=== PATIENT | female | born 1960 | race Asian ===

== ENCOUNTER 2016-07-09 17:54 | Outpatient (CLI) | payer OTHER | END 2016-07-09 17:55 | disposition home or self-care (01) | DX: N28.1 Cyst of kidney, acquired (principal); K76.89 Other specified diseases of liver; K57.30 Diverticulosis of large intestine without perforation or abscess without bleeding; I51.7 Cardiomegaly ==

== ENCOUNTER 2017-05-08 14:38 | Outpatient (CLI) | payer BC, OTHER | END 2017-05-08 14:39 | disposition home or self-care (01) | LOC: SC 14:38 | PROVIDERS: ATTEND Nurse Practitioner Family | DX: G47.33 Obstructive sleep apnea (adult) (pediatric) (principal) | CPT/HCPCS: 99212; 99214 ==

== ENCOUNTER 2017-07-24 14:43 | Outpatient (CLI) | payer BC, OTHER ==
--- NOTE | 2017-07-25 09:49 | Ultrasound Report ---
THYROID ULTRASOUND: 07/24/2017 CLINICAL INDICATION: Goiter. TECHNIQUE: Real-time scanning was performed with abrasives sales representative static images obtained. FINDINGS: The thyroid is enlarged, with the right lobe measuring 10.6 x 4.7 x 4.3 cm, and the left lobe measuring 10.5 x 5.1 x 4.0 cm. The isthmus measures 12 mm. There is diffuse heterogeneity of echotexture. There are multiple isoechoic and spongiform nodules identified, with the largest, in the lower pole of the right lobe measuring 2.0 x 1.3 x 1.1 cm. The nodules appear low to very low suspicion by JOSE MANUEL criteria. No dominant suspicious nodule is appreciated. Fine needle aspiration is not recommended. IMPRESSION: MULTINODULAR GOITER WITHOUT DOMINANT SUSPICIOUS NODULE. TD: 07/25/2017 09:15 HORTENCIA
== END 2017-07-24 14:44 | disposition home or self-care (01) ==
LOC: DI 14:43
PROVIDERS: ATTEND Family Medicine
DX: E04.2 Nontoxic multinodular goiter (principal); I10 Essential (primary) hypertension
CPT/HCPCS: 76536

== ENCOUNTER 2017-08-27 10:55 | Outpatient (CLI) | payer BC, OTHER ==
--- NOTE | 2017-08-29 13:34 | Mammography Report ---
Procedure Date: 08/27/2017 Accession Number: [id number] / [id number] Procedure: MGN - Screening Mammo Dig Bilat CPT Code: FULL RESULT: EXAM: Screening Mammo Dig Bilat DATE: 08/27/2017 11:25 AM CLINICAL HISTORY: 57-year-old with history of late childbearing for screening TECHNIQUE: Bilateral CC, laterally exaggerated CC, MLO views were obtained. COMPARISON: 01/11/2016, 03/22/2014, 09/12/2012, 08/01/2011, 03/27/2010 FINDINGS: The breasts demonstrate scattered fibroglandular densities bilaterally. No suspicious masses, clustered microcalcifications, or regions of architectural distortion are identified. IMPRESSION: Negative examination RECOMMENDATION: Routine annual screening unless otherwise clinically indicated. BIRADS CATEGORY 1: Negative STANDARD QUALIFYING STATEMENTS: 1. This examination was reviewed with the aid of Computer-Aided Detection (CAD). 2. A negative or benign imaging report should not delay biopsy if clinically suspicious findings are present. Consider surgical consultation if warrented. More than 5% of cancers are not identified by imaging. 3. Dense breasts may obscure an underlying neoplasm.
== END 2017-08-27 10:56 | disposition home or self-care (01) ==
LOC: DI.N 10:55
PROVIDERS: ATTEND Family Medicine
DX: Z12.31 Encounter for screening mammogram for malignant neoplasm of breast (principal)
CPT/HCPCS: 77067

== ENCOUNTER → 2017-10-14 | Outpatient (CLI) | payer BC, OTHER ==
[2017-10-14 19:04] LABS: BASOPHILS # (AUTO) 0.1 10^3/uL (0.0-0.1); BASOPHILS % (AUTO) 0.9 %; EOSINOPHILS # (AUTO) 0.1 10^3/uL (0.0-0.7); EOSINOPHILS % (AUTO) 2.4 %; HGB - HEMOGLOBIN 13.9 g/dL (12.0-16.0); LYMPHOCYTES # (AUTO) 2.2 10^3/uL (1.5-3.5); LYMPHOCYTES % (AUTO) 37.2 %; MEAN CORPUSCULAR HEMOGLOBIN 30.3 pg (27.0-31.0); MEAN CORPUSCULAR HGB CONC 33.7 g/dL (32.0-36.0); MEAN PLATELET VOLUME 7.3 fL (7.9-10.8); MONOCYTES # (AUTO) 0.3 10^3/uL (0.0-1.0); NEUTROPHILS # (AUTO) 3.3 10^3/uL (1.5-6.6); NEUTROPHILS % (AUTO) 54.5 %; PLT - PLATELET COUNT 387 10^3/uL (130-450); RED BLOOD COUNT 4.58 10^6/uL (4.20-5.40); RED CELL DISTRIBUTION WIDTH 14.9 % (12.0-15.0)
[2017-10-14 19:34] LABS: ALBUMIN 4.4 g/dL (3.2-5.5); ALBUMIN/GLOBULIN RATIO 1.4 (1.0-2.2); BILIRUBIN,TOTAL 0.7 mg/dL (0.2-1.0); CALCIUM 9.2 mg/dL (8.5-10.3); CREATININE 0.7 mg/dL (0.4-1.0); TOTAL PROTEIN 7.6 g/dL (6.7-8.2)
[2017-10-14 19:42] LABS: THYROID STIMULATING HORMONE 0.42 uIU/mL (0.34-5.60)
[2017-10-14 19:43] LABS: FREE T4 (FREE THYROXINE) 0.86 ng/dL (0.58-1.64)
== END ==
LOC: LAB.WCP 08:00
PROVIDERS: ATTEND Internal Medicine Gastroenterology
DX: E04.2 Nontoxic multinodular goiter (principal); I10 Essential (primary) hypertension
CPT/HCPCS: 36415; 80053; 84439; 84443; 85025

== ENCOUNTER 2017-10-16 13:23 | Outpatient (CLI) | payer BC, OTHER | END 2017-10-16 13:24 | disposition home or self-care (01) | LOC: RT 13:23 | PROVIDERS: ATTEND Internal Medicine Gastroenterology | DX: E04.2 Nontoxic multinodular goiter (principal) | CPT/HCPCS: 93005 ==

== ENCOUNTER 2017-10-24 12:01 | Day surgery (SDC) | payer BC, OTHER ==
--- NOTE | 2017-10-24 12:41 | ANESTHESIA ---
Pre-Anesthesia VS, & Labs - Diagnosis hx of polyps - Procedure colonossopy Vital Signs: Temp Pulse Resp BP Pulse Ox 36.5 C 16 115/68 97 10/24/17 12:28 10/24/17 12:28 10/24/17 12:28 10/24/17 12:28 Height 5 ft 5 in Weight (kg) 94.8 kg - NPO >8 hours - Is Patient ?: Not Applicable - Lab Results Lab results reviewed: Yes Home Medications and Allergies Home Medications: Ambulatory Orders Medication Instructions Recorded Confirmed Amlodipine Besylate 10 mg PO DAILY 10/22/17 10/22/17 Fexofenadine HCl 180 mg PO BID 10/22/17 10/22/17 Fluticasone Propionate [24 Hour 1 inh NS DAILY 10/22/17 10/22/17 Allergy] Hydrochlorothiazide 12.5 mg PO DAILY 10/22/17 10/22/17 Losartan Potassium 100 mg PO DAILY 10/22/17 10/22/17 Metoprolol Succinate [Toprol Xl] 50 mg PO BID 10/22/17 10/22/17 Olopatadine HCl [Patanol] 5 ml OP PRN PRN 10/22/17 10/22/17 Triamcinolone 0.1% Oint [Kenalog 15 gm TOP BID PRN 10/22/17 10/22/17 0.1% Oint] hydrOXYzine HCl [Hydroxyzine HCl] 25 mg PO PRN PRN 10/22/17 10/22/17 Allergies/Adverse Reactions: Allergies Allergy/AdvReac Type Severity Reaction Status Date / Time Sulfa (Sulfonamide Allergy Unknown Verified 10/22/17 12:30 Antibiotics) Anes History & Medical History - Anesthetic History Anesthesia Complications: reports: Post-Operative Nausea/Vomiting Family history of Anesthesia Complications: Denies Family history of Malignant Hyperthermia: Denies - Medical History Cardiovascular: reports: Hypertension Pulmonary: reports: Sleep apnea, CPAP use Gastrointestinal: reports: GERD, Colon polyps, Other Urinary: reports: None Musculoskeletal: reports: Osteoarthritis Endocrine/Autoimmune: reports: Other Skin: reports: Eczema - Surgical History General: Cholecystectomy Orthopedic: Shoulder arthroplasty Exam General: Alert, Oriented x3, Cooperative, No acute distress Dental: Other (caps, inplant) Mouth Openin Fingerbreadth Neck Mobility: Normal Mallampati classification: III Thyromental Distance: 4-6 cm Respiratory: Lungs clear, Normal breath sounds, No respiratory distress, No accessory muscle use Cardiovascular: Normal S1, Normal S2 Mental/Cognitive Status: Alert/Oriented X3, Normal for patient Cognitive Status: Within normal limits Plan Anesthesia Type: MAC Consent for Procedure(s) Verified and Reviewed: Yes Code Status: Attempt Resuscitation ASA classification: 2-Mild systemic disease Is this case an emergency?: No
[2017-10-24] MEDS ORDERED: LACTATED RINGERS 1,000 ML IV ONE (12:49)
[2017-10-24] MEDS ORDERED: PROPOFOL 200 MG/20 ML VIAL IVP ONE (14:00)
[2017-10-24 15:09] VITALS: BP 115/69
== END 2017-10-24 12:02 | disposition home or self-care (01) ==
LOC: SDS 12:01
PROVIDERS: ATTEND Internal Medicine Gastroenterology
PROC: 0DBL8ZZ Excision of Transverse Colon, Via Natural or Artificial Opening Endoscopic (ICD-10-PCS; 2017-10-24)
PROC: 0DBN8ZZ Excision of Sigmoid Colon, Via Natural or Artificial Opening Endoscopic (ICD-10-PCS; 2017-10-24)
PROC: 0DBH8ZZ Excision of Cecum, Via Natural or Artificial Opening Endoscopic (ICD-10-PCS; 2017-10-24)
PROC: 3E0H8GC Introduction of Other Therapeutic Substance into Lower GI, Via Natural or Artificial Opening Endoscopic (ICD-10-PCS; 2017-10-24)
PROC: 0DBK8ZZ Excision of Ascending Colon, Via Natural or Artificial Opening Endoscopic (ICD-10-PCS; principal; 2017-10-24 13:15)
DX: D12.0 Benign neoplasm of cecum (principal); D12.2 Benign neoplasm of ascending colon; D12.3 Benign neoplasm of transverse colon; K63.5 Polyp of colon; G47.30 Sleep apnea, unspecified; E66.9 Obesity, unspecified; Z68.35 Body mass index [BMI] 35.0-35.9, adult; F17.210 Nicotine dependence, cigarettes, uncomplicated; K58.9 Irritable bowel syndrome, unspecified; K21.9 Gastro-esophageal reflux disease without esophagitis; E04.2 Nontoxic multinodular goiter; M54.30 Sciatica, unspecified side
CPT/HCPCS: 45380; 45381; 45385; J7120

== ENCOUNTER 2018-05-12 14:50 | Outpatient (CLI) | payer BC, OTHER | END 2018-05-12 14:51 | disposition home or self-care (01) | LOC: SC 14:50 | PROVIDERS: ATTEND Nurse Practitioner Family | DX: G47.33 Obstructive sleep apnea (adult) (pediatric) (principal) | CPT/HCPCS: 99212; 99214 ==

== ENCOUNTER 2018-05-29 11:01 | Day surgery (SDC) | payer BC, OTHER ==
[2018-05-29] MEDS ORDERED: LACTATED RINGERS 1,000 ML IV ONE (11:34)
--- NOTE | 2018-05-29 11:58 | ANESTHESIA ---
Pre-Anesthesia VS, & Labs - Diagnosis history of colon polyps - Procedure colonoscopy Vital Signs: Temp Pulse Resp BP Pulse Ox 37.6 C H 69 18 118/70 96 05/29/18 11:20 05/29/18 11:20 05/29/18 11:20 05/29/18 11:20 05/29/18 11:20 Height 5 ft 5 in Weight (kg) 96.8 kg - NPO >8 hours - Is Patient ?: Not Applicable Home Medications and Allergies Home Medications: Ambulatory Orders Levothyroxine Sodium 75 mcg PO DAILY 05/26/18 Amlodipine Besylate 10 mg PO DAILY 10/22/17 Fluticasone Propionate [24 Hour Allergy] 1 inh NS BID PRN 10/22/17 Hydrochlorothiazide 12.5 mg PO DAILY 10/22/17 Losartan Potassium 100 mg PO DAILY 10/22/17 Metoprolol Succinate [Toprol Xl] 50 mg PO BID 10/22/17 Olopatadine HCl [Patanol] 5 ml OP PRN PRN 10/22/17 Triamcinolone 0.1% Oint [Kenalog 0.1% Oint] 15 gm TOP BID PRN 10/22/17 Levothyroxine Sodium 75 mcg PO DAILY 05/26/18 Allergies/Adverse Reactions: Allergies Allergy/AdvReac Type Severity Reaction Status Date / Time Sulfa (Sulfonamide Allergy Edema Verified 05/26/18 09:09 Antibiotics) Anes History & Medical History - Anesthetic History Anesthesia Complications: reports: Post-Operative Nausea/Vomiting Family history of Anesthesia Complications: Denies Family history of Malignant Hyperthermia: Denies - Medical History Cardiovascular: reports: Hypertension Pulmonary: reports: Sleep apnea, CPAP use Gastrointestinal: reports: Colon polyps, Other Urinary: reports: None Musculoskeletal: reports: Osteoarthritis Endocrine/Autoimmune: reports: HyPOthyroidism Skin: reports: Eczema - Surgical History General: Cholecystectomy, Colonoscopy Orthopedic: Rotator cuff repair Exam General: Alert, Oriented x3, Cooperative, No acute distress Dental: Other (caps implants) Neck Mobility: Normal Mallampati classification: III Thyromental Distance: 4-6 cm Respiratory: Lungs clear, Normal breath sounds, No respiratory distress, No accessory muscle use Cardiovascular: Normal S1, Normal S2 Mental/Cognitive Status: Alert/Oriented X3, Normal for patient Plan Anesthesia Type: MAC Consent for Procedure(s) Verified and Reviewed: Yes Code Status: Attempt Resuscitation ASA classification: 3-Severe systemic disease Is this case an emergency?: No
[2018-05-29] MEDS ORDERED: LIDOCAINE-MPF 2% 5 ML VIAL IM ONE (13:26)
[2018-05-29] MEDS ORDERED: PROPOFOL 200 MG/20 ML VIAL IVP ONE (13:26)
[2018-05-29 13:37] VITALS: BP 101/51
== END 2018-05-29 11:02 | disposition home or self-care (01) ==
LOC: SDS 11:01
PROVIDERS: ATTEND Internal Medicine Gastroenterology
PROC: 0DBL8ZZ Excision of Transverse Colon, Via Natural or Artificial Opening Endoscopic (ICD-10-PCS; 2018-05-29)
PROC: 0DBN8ZZ Excision of Sigmoid Colon, Via Natural or Artificial Opening Endoscopic (ICD-10-PCS; 2018-05-29)
PROC: 3E0H8GC Introduction of Other Therapeutic Substance into Lower GI, Via Natural or Artificial Opening Endoscopic (ICD-10-PCS; 2018-05-29)
PROC: 0DBK8ZZ Excision of Ascending Colon, Via Natural or Artificial Opening Endoscopic (ICD-10-PCS; principal; 2018-05-29 12:15)
DX: D12.2 Benign neoplasm of ascending colon (principal); D12.3 Benign neoplasm of transverse colon; K63.5 Polyp of colon; K62.1 Rectal polyp; G47.30 Sleep apnea, unspecified; I10 Essential (primary) hypertension; K58.9 Irritable bowel syndrome, unspecified; F17.210 Nicotine dependence, cigarettes, uncomplicated; E66.9 Obesity, unspecified; Z68.36 Body mass index [BMI] 36.0-36.9, adult; Z79.899 Other long term (current) drug therapy; Z86.010 Personal history of colon polyps; Z83.71 Family history of colonic polyps
CPT/HCPCS: 45381; 45385; J7120

== ENCOUNTER 2018-06-28 08:57 | Outpatient (CLI) | payer BC, OTHER ==
--- NOTE | 2018-06-30 10:27 | Ultrasound Report ---
Reason: GOITER,MULTINODULAR Procedure Date: 06/28/2018 Accession Number: [id number] / [id number] Procedure: US - Head or Neck Soft Tissue CPT Code: FULL RESULT: EXAM: THYROID ULTRASOUND EXAM DATE: 06/28/2018 09:33 AM. CLINICAL HISTORY: Follow-up multinodular goiter. COMPARISON: HEAD OR NECK SOFT TISSUE 07/24/2017 3:26 PM. TECHNIQUE: Real time sonographic imaging of the thyroid was performed by the intermediate school teacher. Multiple veterans contact representative static images were saved for review. FINDINGS: THYROID GLAND: Right Lobe: 5.6 x 4.0 x 3.9 cm, volume 47 cc. Parenchymal background is echogenic and diffusely nodular. Right Lobe Nodules: 1.2 x 0.8 x 1.2 cm heterogeneous solid appearing nodule, 1.4 x 1.2 x 1.4 cm isoechoic heterogeneous solid-appearing nodule and partially cystic partially solid 2.2 x 2.1 x 2.0 cm inferior pole nodule. Left Lobe: 5.6 x 4.6 x 5.0 cm, volume 68 cc. Parenchymal background is echogenic and diffusely nodular. Left Lobe Nodules: 1.8 x 1.4 x 1.8 cm posterior hypoechoic solid nodule, 2.2 x 1.5 x 2.1 partially cystic partially solid heterogeneous nodule, 0.9 x 0.7 x 0.9 cm hypoechoic heterogeneous nodule. Isthmus: 1.4 cm AP. Isthmic Nodules: Heterogeneous appearance. LYMPH NODES: No adenopathy demonstrated in the central or lateral compartment. OTHER: None. IMPRESSION: Redemonstration of heterogeneous echotexture and diffuse enlargement. Redemonstration of bilateral low suspicion nodules which measure 2 cm or greater in the setting of a multinodular goiter. The questionable interval enlargement is uncertain given heterogeneous parenchymal background. JOSE MANUEL management guidelines for low suspicion nodules of this size is tissue sampling by FNA or followup. Management recommendations are based on 2015 [place] [employer] Management Guidelines for Adult Patients with Thyroid Nodules and Differentiated Thyroid Cancer. RADIA
== END 2018-06-28 08:58 | disposition home or self-care (01) ==
LOC: DI 08:57
PROVIDERS: ATTEND Family Medicine
DX: E04.2 Nontoxic multinodular goiter (principal)
CPT/HCPCS: 76536

== ENCOUNTER 2018-10-01 12:47 | Outpatient (CLI) | payer BC, OTHER ==
--- NOTE | 2018-10-02 08:32 | Mammography Report ---
Reason: SCREENING MAMMO Procedure Date: 10/01/2018 Accession Number: [id number] / [id number] Procedure: MGN - Screening Mammo Dig Bilat CPT Code: FULL RESULT: EXAM: Screening Mammo Dig Bilat DATE: 10/01/2018 2:19 PM CLINICAL HISTORY: History of late childbearing and early menses. Screening encounter. TECHNIQUE: (B) - Bilateral CC and MLO views were obtained. COMPARISON: 08/27/2017 through 09/12/2012. PARENCHYMAL PATTERN: (A) - The breast(s) demonstrate(s) scattered fibroglandular densities. FINDINGS: There are no suspicious masses, calcifications, or areas of distortion. IMPRESSION: Negative examination. BI-RADS category 1. RECOMMENDATION: (ANNUAL) - Recommend routine annual screening mammography. BI-RADS CATEGORY: (1) - Negative. STANDARD QUALIFYING STATEMENTS: 1. This examination was not reviewed with the aid of Computer-Aided Detection (CAD). 2. A negative or benign imaging report should not preclude biopsy if clinically suspicious findings are present. 3. Dense breasts may obscure an underlying neoplasm. 4. This examination was reviewed without the aid of 3D breast imaging (tomosynthesis).
== END 2018-10-01 12:48 | disposition home or self-care (01) ==
LOC: DI.N 12:47
DX: Z12.31 Encounter for screening mammogram for malignant neoplasm of breast (principal)
CPT/HCPCS: 77067

== ENCOUNTER 2019-11-05 15:17 | Outpatient (CLI) | payer OTHER ==
--- NOTE | 2019-11-06 11:09 | Mammography Report ---
BILATERAL DIGITAL SCREENING MAMMOGRAM 3D/2D: 11/05/2019 CLINICAL: Routine screening. Comparison is made to exams dated: 10/01/2018 mammogram, 08/27/2017 mammogram, and 01/11/2016 mammogram - [facility]. There are scattered fibroglandular elements in both breasts. No significant masses, calcifications, or other findings are seen in either breast. There has been no significant interval change. IMPRESSION: NEGATIVE There is no mammographic evidence of malignancy. A 1 year screening mammogram is recommended. This exam was interpreted at Station ID: [id number]. NOTE: For mammograms, a report in lay terms will be sent to the patient. Approximately 15% of breast malignancies will not be visualized mammographically. In the management of a palpable breast mass, a negative mammogram must not discourage biopsy of a clinically suspicious lesion. Electronically Signed By: Xiao hayes/[email or web address]:11/05/2019 17:35:43 ACR BI-RADS Category 1: Negative [id number] PARENCHYMAL PATTERN: (A) - The breast(s) demonstrate(s) scattered fibroglandular densities. BI-RADS CATEGORY: (1) - 1 RECOMMENDATION: (ANNUAL) - Recommend routine annual screening mammography. [id number] 1 year screening LATERALITY: (B)
== END 2019-11-05 15:18 | disposition home or self-care (01) ==
LOC: DI.N 15:17
DX: Z12.31 Encounter for screening mammogram for malignant neoplasm of breast (principal)
CPT/HCPCS: 77063; 77067

== ENCOUNTER 2019-11-06 10:22 | Day surgery (SDC) | payer OTHER ==
--- NOTE | 2019-11-06 07:57 | ANESTHESIA ---
Pre-Anesthesia VS, & Labs - Diagnosis screening, history of polyps - Procedure colonoscopy (previously required MAC) Height 5 ft 5 in Body Mass Index 38.9 - NPO >8 hours - Is Patient ?: No Home Medications and Allergies Amlodipine Besylate 10 mg PO DAILY 10/22/17 Fluticasone Propionate [24 Hour Allergy] 1 inh NS BID PRN 10/22/17 Hydrochlorothiazide 12.5 mg PO DAILY 10/22/17 Losartan Potassium 100 mg PO DAILY 10/22/17 Metoprolol Succinate [Toprol Xl] 50 mg PO BID 10/22/17 Olopatadine HCl [Patanol] 5 ml OP PRN PRN 10/22/17 Triamcinolone 0.1% Oint [Kenalog 0.1% Oint] 15 gm TOP BID PRN 10/22/17 Levothyroxine Sodium 75 mcg PO DAILY 05/26/18 Allergies/Adverse Reactions: Allergies Allergy/AdvReac Type Severity Reaction Status Date / Time Sulfa (Sulfonamide Allergy Edema Verified 05/26/18 09:09 Antibiotics) Anes History & Medical History - Anesthetic History Anesthesia Complications: reports: Post-Operative Nausea/Vomiting Family history of Anesthesia Complications: Denies Family history of Malignant Hyperthermia: Denies - Medical History Cardiovascular: reports: Hypertension Pulmonary: reports: Sleep apnea, CPAP use Gastrointestinal: reports: Colon polyps, Other Urinary: reports: None Musculoskeletal: reports: Osteoarthritis Endocrine/Autoimmune: reports: HyPOthyroidism Skin: reports: Eczema - Surgical History General: Cholecystectomy, Colonoscopy Orthopedic: Rotator cuff repair Exam General: Alert, Oriented x3, Cooperative Mouth Openin Fingerbreadth Neck Mobility: Normal Mallampati classification: II Respiratory: Lungs clear, Normal breath sounds, No respiratory distress Cardiovascular: Regular rate Neurological: Normal speech Mental/Cognitive Status: Alert/Oriented X3, Normal for patient Cognitive Status: Within normal limits Plan Anesthesia Type: MAC Consent for Procedure(s) Verified and Reviewed: Yes Code Status: Attempt Resuscitation ASA classification: 3-Severe systemic disease Is this case an emergency?: No
[2019-11-06] MEDS ORDERED: LACTATED RINGERS 1,000 ML IV ONE ×2 (10:25→12:36)
[2019-11-06] MEDS ORDERED: fentaNYL 100 MCG/2 ML VIAL IVP ONE (11:11)
[2019-11-06] MEDS ORDERED: PROPOFOL 200 MG/20 ML VIAL IVP ONE (11:11)
[2019-11-06] MEDS ORDERED: MIDAZOLAM 2 MG/2 ML VIAL IVP ONE (11:11)
[2019-11-06 13:20] VITALS: BP 101/56
--- NOTE | 2019-11-06 13:27 | ANESTHESIA POST OP EVALUATION ---
Anesthesia Post Eval - Post Anesthesia Eval Vitals: Last Vital Signs Temp 36.0 C L 11/06/19 13:17 Pulse 61 11/06/19 13:17 Resp 12 11/06/19 13:17 BP 101/56 L 11/06/19 13:17 Pulse Ox 97 11/06/19 13:17 CV Function Including HR & BP: positive: Stable Pain Control: positive: Satisfactory Nausea & Vomiting: positive: Negative Mental Status: positive: Baseline Respiratory Status: Airway Patent Hydration Status: Satisfactory
== END 2019-11-06 10:23 | disposition home or self-care (01) ==
LOC: SDS 10:22
PROVIDERS: ATTEND Surgery
PROC: 0DBK8ZZ Excision of Ascending Colon, Via Natural or Artificial Opening Endoscopic (ICD-10-PCS; principal; 2019-11-06 11:30)
DX: D12.2 Benign neoplasm of ascending colon (principal); D12.4 Benign neoplasm of descending colon; D12.3 Benign neoplasm of transverse colon; K63.5 Polyp of colon; K57.30 Diverticulosis of large intestine without perforation or abscess without bleeding; K58.9 Irritable bowel syndrome, unspecified; G47.30 Sleep apnea, unspecified; I10 Essential (primary) hypertension; E66.9 Obesity, unspecified; E89.0 Postprocedural hypothyroidism; Z87.891 Personal history of nicotine dependence
CPT/HCPCS: 45380; 45385; J7120

== ENCOUNTER 2020-10-03 11:24 | Outpatient (CLI) | payer OTHER ==
--- NOTE | 2020-10-03 12:42 | SLEEP CARE CONSULTATION ---
Information from patient questionnaire entered by Estee Bishop. I have reviewed and concur with the information entered by Estee Bishop. This document represents the service I personally performed and the decisions made by me, Roman Mcnulty MD, [facility]. History of Present Illness Service Date and Time: 10/03/2020 1124 Previous diagnosis: Mild, Obstructive Sleep Apnea-Hypopnea Syndrome AHI: 6.4 (in 2010) Reason for follow up: annual (last seen 09/2019) Equipment type: CPAP Equipment obtained from: [employer] Mask style: Full face Prior sleep studies: Yes Year and Where: 2010 - [facility] Type of Sleep Study: Polysomnography HPI additional information: HPI: Ms. Miller returned today for follow up of nasal CPAP therapy. She was diagnosed to have mild obstructive sleep apnea-hypopnea syndrome. The patient went to [employer] in [place] for the equipment but is getting supplies from [employer] because her insurance is [employer]. She wears a ResMed AirTouch F-20 full face mask. She reports using the device nightly and all t hrough the night. The compliance report shows usage in 180 nights out of the past 180 nights, averaging 7.6 hours a night. She complained of no particular problem with the device such as soreness on the face, dry nose, epistaxis, nasal congestion or headache. She thinks that the pressure of 15 cmH2O is comfortable. On the CPAP therapy she notices improvement in her sleep quality, and that she wakes up feeling fresher in the morning and more awake/alert during the day. The Ezel Sleepiness Scale score 5. Her notices no snore at all. The average residual AHI is 1.6; and average time in large leak per day is 17 minutes. CPAP Compliance Data - Data Reviewed with Patient Average duration of nightly device use: 7 hr 34 min Compliance rate %: 99.4 (180 days) Current pressure setting (cmH2O): 15 Humidity settin Heated hose settin Average residual AHI: 1.6 Average large leak: 17 min 29 sec Subjective Initial Ezel Sleepiness Scale score: 15 (in 2010) Current Ezel Sleepiness Scale score: 5 Allergies and Home Medications Drug allergies reviewed: Yes Home medication list reviewed: Yes Review of Systems Review of systems same as previous: Yes Physical Exam Height: 5 ft 5 in Weight: 220 lb Body Mass Index: 36.6 BMI Classification: Obese Impression and Plan IMPRESSION: 1. Obstructive Sleep Apnea-Hypopnea Syndrome, mild (AHI was 6.4), with the patient doing well on nasal CPAP therapy. She has excellent compliance and significant clinical improvement. The current pressure appears effective and comfortable. Overall, she is very satisfied with treatment and plans to c ontinue with it long-term. No adjustment is necessary today. In regards to the recall on all [employer] devices, we discussed the risks and benefits of stopping versus continuing to use the device. In severe cases, it appears the benefits outweigh the risks and it is reasonable to continue until the replace part or machine becomes available. Symptoms that could be related to the recalled sound abatement foam piece are headache, nausea, chest tightness, and upper airway irritation. She should also look for debris in the air outlet, water reservoir, and hose. If found, the device should not be used. In [id number] cases, the patients should refrain from using the device. The patient should register the device on [employer]/SRC-update. She decides to not use her CPAP until it can be replaced by [employer]. PLAN: 1. Discontinue using the CPAP until it can be replaced. 2. Try to lose weight 3. Return for follow up after she gets a new device. Counseling Topics: Weight control Visit Type: In Office Time Spent with Patient (minutes): 15 Provider Statement: I spent 100% of the Face to Face Visit with the patient with greater than 50% spent counseling the patient and coordination of care.
== END 2020-10-03 11:25 | disposition home or self-care (01) ==
LOC: SC 11:24
PROVIDERS: ATTEND Internal Medicine Pulmonary Disease
DX: G47.33 Obstructive sleep apnea (adult) (pediatric) (principal); E66.9 Obesity, unspecified; Z68.36 Body mass index [BMI] 36.0-36.9, adult
CPT/HCPCS: 99212

== ENCOUNTER 2021-01-06 10:22 | Day surgery (SDC) | payer OTHER ==
[2021-01-06] MEDS ORDERED: LACTATED RINGERS 1,000 ML IV ONE (11:07)
[2021-01-06] MEDS ORDERED: PROPOFOL 500 MG/50 ML 500 MG/50 ML VIAL ONE (11:16)
--- NOTE | 2021-01-06 11:55 | ANESTHESIA ---
Pre-Anesthesia VS, & Labs - Diagnosis GERD, hx of polyps - Procedure EGD, Colonoscopy Vital Signs: Temp Pulse Resp BP Pulse Ox 36.7 C 66 18 130/71 98 01/06/21 10:46 01/06/21 10:46 01/06/21 10:46 01/06/21 10:46 01/06/21 10:46 Height: 5 ft 5 in Weight (kg): 99.3 kg Body Mass Index: 36.4 BMI Classification: Obese - NPO >8 hours - Is Patient ?: No - Lab Results Current Lab Results: Laboratory Tests 01/06/21 11:13: POC Whole Bld Glucose 110 H Home Medications and Allergies Amlodipine Besylate 10 mg PO DAILY 10/22/17 Fluticasone Propionate [24 Hour Allergy] 1 inh NS BID PRN 10/22/17 Losartan Potassium 100 mg PO DAILY 10/22/17 Metoprolol Succinate [Toprol Xl] 50 mg PO BID 10/22/17 Olopatadine HCl [Patanol] 5 ml OP PRN PRN 10/22/17 Triamcinolone 0.1% Oint [Kenalog 0.1% Oint] 15 gm TOP BID PRN 10/22/17 hydroCHLOROthiazide [Hydrochlorothiazide] 12.5 mg PO DAILY 10/22/17 Levothyroxine Sodium 75 mcg PO DAILY 05/26/18 Allergies/Adverse Reactions: Allergies Allergy/AdvReac Type Severity Reaction Status Date / Time Sulfa (Sulfonamide Allergy Edema Verified 05/26/18 09:09 Antibiotics) Anes History & Medical History - Anesthetic History Anesthesia Complications: reports: No previous complications Family history of Anesthesia Complications: Denies Family history of Malignant Hyperthermia: Denies - Medical History Cardiovascular: reports: Hypertension Pulmonary: reports: Sleep apnea, CPAP use Gastrointestinal: reports: GERD, Colon polyps, Other Urinary: reports: None Musculoskeletal: reports: Osteoarthritis Endocrine/Autoimmune: reports: HyPOthyroidism Skin: reports: Eczema - Surgical History General: reports: Cholecystectomy, Colonoscopy, Other Orthopedic: reports: Rotator cuff repair Exam General: Alert, Oriented x3, Cooperative Dental: WNL Mouth Openin Fingerbreadth Neck Mobility: Normal Mallampati classification: II Thyromental Distance: 4-6 cm Respiratory: Lungs clear Cardiovascular: Regular rate Plan Anesthesia Type: Total IV Consent for Procedure(s) Verified and Reviewed: Yes Code Status: Attempt Resuscitation ASA classification: 3-Severe systemic disease Is this case an emergency?: No
[2021-01-06] MEDS ORDERED: LIDOCAINE-MPF 2% 5 ML VIAL ONE (12:07)
[2021-01-06] MEDS ORDERED: MIDAZOLAM 2 MG/2 ML VIAL ONE (12:08)
[2021-01-06] MEDS ORDERED: fentaNYL 100 MCG/2 ML VIAL ONE (12:28)
[2021-01-06] MEDS ORDERED: PROPOFOL 200 MG/20 ML VIAL IVP ONE ×3 (12:29→13:31)
--- NOTE | 2021-01-06 12:39 | HISTORY & PHYSICAL EXAMINATION ---
Chief Complaint - Chief Complaint Chief Complaint: History colon polyps History of Present Illness - History Obtained From Records Reviewed: yes History obtained from: pt Exam Limitations: none - History of Present Illness HPI Comment/Other: History of colon polyps and progressive GERD symptoms. History - Past Medical History Cardiovascular: reports: Hypertension Respiratory: reports: Sleep apnea, CPAP use Endocrine/Autoimmune: reports: HyPOthyroidism GI: reports: GERD, Colon polyps, Other : reports: None HEENT: reports: None Psych: reports: None Musculoskeletal: reports: Osteoarthritis Derm: reports: Eczema MRSA Hx?: No - Past Surgical History General: reports: Cholecystectomy, Colonoscopy, Other Ortho: reports: Rotator cuff repair Meds/Allgy - Home Medications Home Medications: Ambulatory Orders Medication Instructions Recorded Confirmed Amlodipine Besylate 10 mg PO DAILY 10/22/17 05/29/18 Fluticasone Propionate [24 Hour 1 inh NS BID PRN 10/22/17 05/29/18 Allergy] Losartan Potassium 100 mg PO DAILY 10/22/17 01/06/21 Metoprolol Succinate [Toprol Xl] 50 mg PO BID 10/22/17 01/06/21 Olopatadine HCl [Patanol] 5 ml OP PRN PRN 10/22/17 05/29/18 Triamcinolone 0.1% Oint [Kenalog 15 gm TOP BID PRN 10/22/17 05/29/18 0.1% Oint] hydroCHLOROthiazide 12.5 mg PO DAILY 10/22/17 01/06/21 [Hydrochlorothiazide] Levothyroxine Sodium 75 mcg PO DAILY 05/26/18 01/06/21 - Allergies Allergies/Adverse Reactions: Allergies Allergy/AdvReac Type Severity Reaction Status Date / Time Sulfa (Sulfonamide Allergy Edema Verified 05/26/18 09:09 Antibiotics) Review of Systems - Other Findings Other Findings: 10 pt ros as above otherwise unremarkable Exam - Vital Signs Reviewed Vital Signs: Yes Vital Signs: Vital Signs x48h Temp Pulse Resp BP Pulse Ox 01/06/21 10:46 36.7 C 66 18 130/71 98 - Physical Exam General Appearance: positive: No acute distress, Alert Eyes Bilateral: positive: PERRL, EOMI ENT: positive: No signs of dehydration Neck: positive: No JVD Respiratory: positive: No respiratory distress, Breath sounds nml Cardiovascular: positive: Regular rate & rhythm Abdomen: positive: Non-tender, No distention Neurologic/Psychiatric: positive: Oriented x3 Conclusion/Plan - Problem List (1) History of adenomatous polyp of colon Conclusion/Plan: plan colonoscopy and EGD. parq held and consent obtained
[2021-01-06] MEDS ORDERED: GLYCOPYRROLATE 1 MG/5 ML VIAL ONE (12:49)
[2021-01-06] MEDS ORDERED: LACTATED RINGERS 350 ML IV ONE (13:45)
[2021-01-06 14:32] VITALS: BP 121/63
--- NOTE | 2021-01-06 15:07 | ANESTHESIA POST OP EVALUATION ---
Anesthesia Post Eval - Post Anesthesia Eval Vitals: Last Vital Signs Temp 36.6 C 01/06/21 14:31 Pulse 62 01/06/21 14:31 Resp 16 01/06/21 14:31 BP 121/63 01/06/21 14:31 Pulse Ox 100 01/06/21 14:31 CV Function Including HR & BP: Stable Pain Control: Satisfactory Nausea & Vomiting: Negative Mental Status: Baseline Respiratory Status: Airway Patent Hydration Status: Satisfactory Anesthesia Complications: None
== END 2021-01-06 10:23 | disposition home or self-care (01) ==
LOC: SDS 10:22
PROVIDERS: ATTEND Surgery
PROC: 0DB78ZX Excision of Stomach, Pylorus, Via Natural or Artificial Opening Endoscopic, Diagnostic (ICD-10-PCS; 2021-01-06)
PROC: 0DBM8ZZ Excision of Descending Colon, Via Natural or Artificial Opening Endoscopic (ICD-10-PCS; principal; 2021-01-06 12:00)
PROC: 0DBN8ZX Excision of Sigmoid Colon, Via Natural or Artificial Opening Endoscopic, Diagnostic (ICD-10-PCS; 2021-01-06 12:00)
DX: D12.4 Benign neoplasm of descending colon (principal); K63.5 Polyp of colon; K62.1 Rectal polyp; K57.30 Diverticulosis of large intestine without perforation or abscess without bleeding; K29.71 Gastritis, unspecified, with bleeding; E89.0 Postprocedural hypothyroidism; G47.33 Obstructive sleep apnea (adult) (pediatric); I10 Essential (primary) hypertension; K58.9 Irritable bowel syndrome, unspecified; F17.210 Nicotine dependence, cigarettes, uncomplicated; L30.9 Dermatitis, unspecified
CPT/HCPCS: 43239; 45380; 45385; J7120

== ENCOUNTER 2021-06-07 16:41 | Outpatient (CLI) | payer OTHER ==
[2021-06-07 17:22] VITALS: BP 129/73
--- NOTE | 2021-06-07 17:22 | SLEEP CARE CONSULTATION ---
Information from patient questionnaire entered by Homer Kamara MA. I have reviewed and concur with the information entered by Homer Kamara MA. This document represents the service I personally performed and the decisions made by , Yajaiar Chaudhry ARNP. History of Present Illness Service Date and Time: 06/07/2021 1641 Previous diagnosis: Mild, Obstructive Sleep Apnea-Hypopnea Syndrome AHI: 6.4 (in 2010) Reason for follow up: other (7 MONTH F/U, RX FOR NEW MACHINE, SET UP DATE 07/2018 [place], ) Equipment type: CPAP Equipment obtained from: [employer] ([employer] supplies) Mask style: Full face Backup mask available: No (will keep old mask when replaced) Prior sleep studies: Yes Year and Where: 2010 - [facility] Sleep Type of Sleep Study: Polysomnography HPI additional information: THOMAS CHANDLER was diagnosed to have mild, AHI 6.4, obstructive sleep apnea-hypopnea syndrome and returned today for CPAP therapy 7 month follow-up. Sleep Study - Results Type of Sleep Study: Polysomnography Prior sleep studies: Yes Year and Where: 2010 [facility] Sleep CPAP Compliance Data - Data Reviewed with Patient Compliance rate %: 0 (not used since 09/2020) Compliance data discussion: Patient stopped using her CPAP in September but then started using it here and there because her sleepiness was increasing. She did not bring in her memory card today. Subjective Missed days of use due to: reports: other (Recall) Patient concerns: reports: air blowing in eyes, dry mouth, nose, throat (pt encouraged to increase humidifier setting). denies: aerophagia, mask di scomfort, mask leak noise, condensation in mask/hose, nasal congestion, epistaxis, other Observed to snore while using device: No Current pressure setting perceived as: comfortable On therapy, patient: reports: sleeping better, awakening more refreshed, being more awake and alert during the day, more rested overall. denies: drowsiness while driving Initial [place] Sleepiness Scale score: 15 (in 2010) Current [place] Sleepiness Scale score: 8 (2021) Allergies and Home Medications Known drug allergies: Yes (Sulfa, Metformin,) Home medication list reviewed: Yes (no changes) Allergy and home medication list: Allergies Sulfa (Sulfonamide Antibiotics) Allergy (Verified 04/01/19 09:09) Edema puffy eyes and face bloating Metformin, adverse reaction, extreme diarrhea Review of Systems Review of systems same as previous: Yes (no changes) Physical Exam Vital signs obtained and entered by: NAPOLEON MAHMOOD Blood Pressure: 129/73 (resp 18, pulse 70, right,) Cuff size: wrist Heart Rate: 69 O2 Saturation: 97 Height: 5 ft 5 in Weight: 212 lb Body Mass Index: 35.2 BMI Classification: Obese Impression and Plan 1. Obstructive Sleep Apnea-Hypopnea Syndrome, mild. On CPAP therapy, the patient has better sleep quality and is more rested overall. She stopped using her Dreamstation because of the recall in September 2020. She states she started having more daytime sleepiness and tiredness so she has used the CPAP some more over the last couple months. She has talked to her insurance company who told her she is eligible for a new device. She last updated in December of 2015. The patients CPAP is over 5 years old and of reasonable use. Thus, the CPAP will be updated. The new CPAPs also have a better humidity system which could assist control of patients dryness symptoms. A DWO prescription will be made. Compliance guidelines for new device and follow up discussed. Patient's apnea severity and rationale for treatment to reduce apnea, improve sleep quality and reduce cardiovascular and cerebrovascular events was reviewed. I also reviewed the benefit of consistent device use of CPAP for hypertension. 2. Obesity, unspecified. Patient's current BMI is 35.2. Patient was encouraged to try to lose weight. * Continue auto CPAP pressure at 15.0 cmH2O * Update machine * Notify me if snoring with mask or feeling that the pressure is too much or too little * Attempt to lose weight * Call this office if any problems using CPAP * Return for follow up one month after obtaining new device, or sooner if concerns arise Counseling Topics: Spare mask, Weight loss health impact Visit Type: In Office Time Spent with Patient (minutes): 25 Provider Statement: I spent 100% of the Face to Face Visit with the patient with greater than 50% spent counseling the patient and coordination of care.
== END 2021-06-07 16:42 | disposition home or self-care (01) ==
LOC: SC 16:41
PROVIDERS: ATTEND Nurse Practitioner Family
DX: G47.33 Obstructive sleep apnea (adult) (pediatric) (principal); E66.9 Obesity, unspecified; Z68.35 Body mass index [BMI] 35.0-35.9, adult
CPT/HCPCS: 99212; 99213

== ENCOUNTER 2021-08-04 08:32 | Outpatient (CLI) | payer OTHER ==
[2021-08-04 09:14] VITALS: BP 124/77
--- NOTE | 2021-08-04 09:14 | SLEEP CARE CONSULTATION ---
Information from patient questionnaire entered by Homer Pearson MA. I have reviewed and concur with the information entered by Homer Pearson MA. This document represents the service I personally performed and the decisions made by , Yajaira Chaudhry ARNP. History of Present Illness Service Date and Time: 08/04/2021 0832 Previous diagnosis: Mild, Obstructive Sleep Apnea-Hypopnea Syndrome AHI: 6.4 (in 2010) Reason for follow up: first compliance (RESMED, SANTOYO 06/14/2021, ), first compliance after device update Equipment type: CPAP Equipment obtained from: [employer] (getting supplies as needed) Mask style: Full face Mask brand: [employer]med (AirFit F20, medium) Backup mask available: Yes (old mask) Last cushion change: 1 month Prior sleep studies: Yes Year and Where: 2010 - [facility] Sleep Type of Sleep Study: Polysomnography HPI additional information: THOMAS CHANDLER was diagnosed to have mild, AHI 6.4, obstructive sleep apnea-hypopnea syndrome and returned today for CPAP therapy first compliance after updating device follow-up. Sleep Study - Results Type of Sleep Study: Polysomnography Prior sleep studies: Yes Year and Where: 2010 - [facility] Sleep CPAP Compliance Data - Data Reviewed with Patient Average duration of nightly device use: 7 HOURS 30 MINUTES Compliance rate %: 100 (07/04/2021-08/02/2021, usage) Current pressure setting (cmH2O): 15 Average residual AHI: 0.8 Central apnea: 0.0 Obstructive apnea: 0.1 Hypopnea: 0.5 Average large leak: 39.0 Subjective Missed days of use due to: reports: family emergency, illness Patient concerns: reports: dry mouth, nose, throat (dry mouth and nose), other (rash on face from mask). denies: aerophagia, mask discomfort, air blowing in eyes, mask leak noise, condensation in mask/hose, nasal congestion, epistaxis Observed to snore while using device: No Current pressure setting perceived as: too low (when ramping) On therapy, patient: reports: sleeping better, awakening more refreshed, being more awake and alert during the day, more rested overall. denies: drowsiness while driving Initial [place] Sleepiness Scale score: 15 (in 2010) Current [place] Sleepiness Scale score: 12 (07/2021) Allergies and Home Medications Known drug allergies: Yes (SULFA, METFORMIN) Drug allergies reviewed: Yes Home medication list reviewed: Yes (Prilosec) Allergy and home medication list: Allergies Sulfa (Sulfonamide Antibiotics) Allergy (Verified 05/26/18 09:09) Edema puffy eyes and face bloating metformin Adverse Reaction (Verified 06/07/21 17:05) Review of Systems Review of systems same as previous: Yes (no changes) Physical Exam Vital signs obtained and entered by: Scarlett PEARSON CMA AAMT Blood Pressure: 124/77 (RESP 16, PULSE 70, RIGHT,) Heart Rate: 68 O2 Saturation: 96 (N94) Height: 5 ft 5 in Weight: 211 lb Body Mass Index: 35.1 BMI Classification: Obese Impression and Plan 1. Obstructive Sleep Apnea-Hypopnea Syndrome, mild, with excellent treatment compliance and excellent apnea control. On CPAP therapy, the patient has better sleep quality and is more rested overall. Patient has been getting some mouth and nose dryness with new device. Oral dryness can be reduced by adjusting humidity setting higher or heated hose lower or by adjusting both settings. Verbal instructions given on how to change humidity and heated hose settings with rationale explaining why to change. Patient also got the wrong mask, she got the AirFit F20 instead of the AirTouch F20 with the memory foam. She has a light rash from wearing the AirFit. I advised her to talk to Dayna about getting her an AirTouch mask like she has had before and did not have problems with rashes. She voiced understanding. Patient's apnea severity and rationale for treatment to reduce apnea, improve sleep quality and reduce cardiovascular and cerebrovascular events was reviewed. I also reviewed the benefit of consistent device use of CPAP for hypertension. * Continue CPAP pressure at 15 cmH2O * Notify me if snoring with mask or feeling that the pressure is too much or too little * Attempt to lose weight * Call this office if any problems using CPAP * Return for follow up in 1 year, or sooner if concerns arise Counseling Topics: Spare mask, Weight loss health impact Visit Type: In Office Time Spent with Patient (minutes): 29 Provider Statement: I spent 100% of the Face to Face Visit with the patient with greater than 50% spent counseling the patient and coordination of care.
== END 2021-08-04 08:33 | disposition home or self-care (01) ==
LOC: SC 08:32
PROVIDERS: ATTEND Nurse Practitioner Family
DX: G47.33 Obstructive sleep apnea (adult) (pediatric) (principal); E66.9 Obesity, unspecified; Z68.35 Body mass index [BMI] 35.0-35.9, adult
CPT/HCPCS: 99212; 99213

== ENCOUNTER 2021-11-27 15:32 | Outpatient (CLI) | payer OTHER ==
--- NOTE | 2021-11-29 10:13 | Mammography Report ---
BILATERAL DIGITAL SCREENING MAMMOGRAM 3D/2D: 11/27/2021 CLINICAL: Routine screening. Comparison is made to exams dated: 11/05/2019 mammogram, 10/01/2018 mammogram, 08/27/2017 mammogram, 12/26 mammogram, 03/22/2014 mammogram, and 09/12/2012 mammogram - [facility]. There are scattered areas of fibroglandular density in both breasts (category b / 25%-50% glandular t issue). No significant masses, calcifications, or other findings are seen in either breast. There has been no significant interval change. IMPRESSION: NEGATIVE There is no mammographic evidence of malignancy. A 1 year screening mammogram is recommended. Based on the Tyrer Cuzick model (a risk assessment model) the patients lifetime risk is 8.0% and her 10 year risk is 3.6%. According to the ACR, ACS, and NCCN guidelines, an annual breast MRI exam christine g with mammogram is recommended if the patients lifetime risk is 20% or greater. This exam was interpreted at Station ID: [id number]. NOTE: For mammograms, a report in lay terms will be sent to the patient. Approximately 15% of breast malignancies will not be visualized mammographically. In the management of a palpable breast mass, a negative mammogram must not discourage biopsy of a clinically suspicious lesion. Electronically Signed By: Mike trinh/taylor:11/28/2021 09:33:17 ACR BI-RADS Category 1: Negative 3341F PARENCHYMAL PATTERN: (A) - The breast(s) demonstrate(s) scattered fibroglandular densities. BI-RADS CATEGORY: (1) - 1 RECOMMENDATION: (ANNUAL) - Recommend routine annual screening mammography. [id number] 1 year screening LATERALITY: (B)
== END 2021-11-27 15:33 | disposition home or self-care (01) ==
LOC: DI.N 15:32
DX: Z12.31 Encounter for screening mammogram for malignant neoplasm of breast (principal)

== ENCOUNTER 2022-08-22 10:28 | Outpatient (CLI) | payer OTHER ==
--- NOTE | 2022-08-22 11:09 | SLEEP CARE CONSULTATION ---
Information from patient questionnaire entered by Nataliia Moore. I have reviewed and concur with the information entered by Nataliia Moore. This document represents the service I personally performed and the decisions made by me, Yajaira Chaudhry ARNP. History of Present Illness Service Date and Time: 08/22/2022 1028 Previous diagnosis: Mild, Obstructive Sleep Apnea-Hypopnea Syndrome AHI: 6.4 (in 2010) Reason for follow up: annual (LAST SEEN 07/2021) Equipment type: CPAP (Dreamstation 2, s/u 07/2018, [place] CARD NEEDED) Equipment obtained from: [employer] (getting supplies as needed) Mask style: Full face Backup mask available: Yes (old mask) Last cushion change: 2 weeks Prior sleep studies: Yes Year and Where: [address] - [facility] Sleep Type of Sleep Study: Polysomnography HPI additional information: THOMAS CHANDLER was diagnosed to have mild, AHI 6.4, obstructive sleep apnea-hypopnea syndrome and returned today for CPAP therapy annual follow-up. Sleep Study - Results Type of Sleep Study: Polysomnography Prior sleep studies: Yes Year and Where: [address] [facility] Sleep CPAP Compliance Data - Data Reviewed with Patient Average duration of nightly device use: 7 hours 43 minutes Compliance rate %: 99.4 (180/180 days used) Current pressure setting (cmH2O): 4-20 (90% 12.9) Average residual AHI: 2.3 Average large leak: 2 mins 29 secs Subjective Patient concerns: denies: aerophagia, mask discomfort, air blowing in eyes, mask leak noise, condensation in mask/hose, nasal congestion, dry mouth, nose, throat, epistaxis Observed to snore while using device: No Current pressure setting perceived as: comfortable On therapy, patient: reports: sleeping better, awakening more refreshed, being more awake and alert during the day, more rested overall. denies: drowsiness while driving Initial [place] Sleepiness Scale score: 15 (in 2010) Current [place] Sleepiness Scale score: 5 (08/22/22) Allergies and Home Medications Known drug allergies: Yes (sulfa, metformin) Drug allergies reviewed: Yes Home medication list reviewed: Yes (no changes) Allergy and home medication list: Allergies Sulfa (Sulfonamide Antibiotics) Allergy (Verified 08/21/22 14:40) Edema puffy eyes and face bloating metformin Adverse Reaction (Verified 08/21/22 14:40) Review of Systems Review of systems same as previous: Yes (no changes) Physical Exam Vital signs obtained and entered by: NATALIIA Fontaine MA Blood Pressure: 138/76 (LEFT ARM) Cuff size: regular Heart Rate: 73 O2 Saturation: 96 Height: 5 ft 5 in Weight: 229 lb Body Mass Index: 38.1 BMI Classification: Obese Impression and Plan 1. Obstructive Sleep Apnea-Hypopnea Syndrome, mild, with good treatment compliance and good apnea control. On CPAP therapy, the patient has better sleep quality and is more rested overall. Her new Dreamstation 2 is not set how her last machine was set with the pressure at 15 cmH2O and the ramp pressure off. I will have this adjusted on her new CPAP. Patient has significant improvement of their sleep apnea and is satisfied with current CPAP therapy. Patient denies problems with oral dryness, nasal congestion, epistaxis, skin irritation or aerophagia. Patient's apnea severity and rationale for treatment to reduce apnea, improve sleep quality and reduce cardiovascular and cerebrovascular events was reviewed. I also reviewed the benefit of consistent device use of CPAP for hypertension. 2. Obesity, unspecified. Currently patients BMI is 38.1. Obesity increases the risk of apnea, CPAP pressure requirements and overall health risks especially cardiovascular and diabetes. Thus patient is advised to lose weight. * Continue auto CPAP pressure at 15 cmH2O * Update supplies * Notify me if snoring with mask or feeling that the pressure is too much or too little * Attempt to lose weight * Call this office if any problems using CPAP * Return for follow up in 1 year, or sooner if concerns arise Counseling Topics: Spare mask, Weight loss health impact Visit Type: In Office Time Spent with Patient (minutes): 22 Provider Statement: I spent 100% of the Face to Face Visit with the patient with greater than 50% spent counseling the patient and coordination of care.
[2022-08-22 11:49] VITALS: BP 138/76
== END 2022-08-22 10:29 | disposition home or self-care (01) ==
LOC: SC 10:28
PROVIDERS: ATTEND Nurse Practitioner Family
DX: G47.33 Obstructive sleep apnea (adult) (pediatric) (principal); E66.9 Obesity, unspecified; Z68.38 Body mass index [BMI] 38.0-38.9, adult
CPT/HCPCS: 99212; 99213

== ENCOUNTER 2022-12-26 15:36 | Outpatient (CLI) | payer OTHER ==
--- NOTE | 2022-12-27 16:04 | Mammography Report ---
BILATERAL DIGITAL SCREENING MAMMOGRAM 3D/2D: 12/26/2022 CLINICAL: Routine screening. Comparison is made to exams dated: 11/27/2021 mammogram, 11/05/2019 mammogram, 10/01/2018 mammogram, 08/27 mammogram, 01/11/2016 mammogram, and 03/22/2014 mammogram - [facility]. There are scattered areas of fibroglandular density in both breasts (category b / 25%-50% glandular t issue). No significant masses, calcifications, or other findings are seen in either breast. There has been no significant interval change. IMPRESSION: NEGATIVE There is no mammographic evidence of malignancy. A 1 year screening mammogram is recommended. Based on the Tyrer Cuzick model (a risk assessment model) the patients lifetime risk is 7.8% and her 10 year risk is 3.6%. According to the ACR, ACS, and NCCN guidelines, an annual breast MRI exam christine g with mammogram is recommended if the patients lifetime risk is 20% or greater. This exam was interpreted at Station ID: [id number]. NOTE: For mammograms, a report in lay terms will be sent to the patient. Approximately 15% of breast malignancies will not be visualized mammographically. In the management of a palpable breast mass, a negative mammogram must not discourage biopsy of a clinically suspicious lesion. Electronically Signed By: Freddy reno/taylor:12/27/2022 10:17:21 letter sent: No_Letter ACR BI-RADS Category 1: Negative 3341F PARENCHYMAL PATTERN: (A) - The breast(s) demonstrate(s) scattered fibroglandular densities. BI-RADS CATEGORY: (1) - 1 Mammogram [id number] 1 year screening LATERALITY: (B)
== END 2022-12-26 15:37 | disposition home or self-care (01) ==
LOC: DI.N 15:36
DX: Z12.31 Encounter for screening mammogram for malignant neoplasm of breast (principal); R92.323 Mammographic fibroglandular density, bilateral breasts

== ENCOUNTER 2023-10-09 12:47 | Outpatient (CLI) | payer OTHER, MEDICARE ==
--- NOTE | 2023-10-09 13:17 | Sleep Patient Instructions ---
Sleep Center Visit Summary - Patient Visit Information Reason for Visit: Annual follow-up for PAP therapy - Patient Instructions Additional Instructions: You will continue with CPAP therapy with pressure set at 15 cmH2O. A supply prescription will be updated with your DME supplier. We encourage you to continue to try to lose weight. Please follow up with the sleep care office in 1 year. - Clinic Information Contact: [facility] [address] [place] [address] [email or web address] T: [phone]
--- NOTE | 2023-10-09 13:20 | SLEEP CARE CONSULTATION ---
Information from patient questionnaire entered by Nataliia Moore. I have reviewed and concur with the information entered by Nataliia Moore. This document represents the service I personally performed and the decisions made by me, Yajaira Chaudhry ARNP. History of Present Illness Service Date and Time: 10/09/2023 1247 Previous diagnosis: Mild, Obstructive Sleep Apnea-Hypopnea Syndrome AHI: 6.4 (in 2010) Reason for follow up: annual (LAST SEEN 07/2022) Equipment type: CPAP (Dreamstation 2, s/u 07/2018, [place] CARD NEEDED) Equipment obtained from: [employer] (getting supplies as needed) Mask style: Full face Backup mask available: Yes (old mask) Last cushion change: 3 weeks Prior sleep studies: Yes Year and Where: 2010 - [facility] Sleep Type of Sleep Study: Polysomnography HPI additional information: THOMAS CHANDLER was diagnosed to have mild, AHI 6.4, obstructive sleep apnea-hypopnea syndrome and returned today for CPAP therapy annual follow-up. Sleep Study - Results Type of Sleep Study: Polysomnography Prior sleep studies: Yes Year and Where: 2010 - [facility] Sleep CPAP Compliance Data - Data Reviewed with Patient Average duration of nightly device use: 8 hours 3 mins Compliance rate %: 97.8 (10/09/22-10/08/23; 360/365 days used) Current pressure setting (cmH2O): 15 Average residual AHI: 0.6 Central apnea: 0 Obstructive apnea: 0.2 Hypopnea: 0.4 Average large leak: 5 mins Subjective Missed days of use due to: reports: illness Patient concerns: reports: dry mouth, nose, throat (oral venting in mask). denies: aerophagia, mask discomfort, air blowing in eyes, mask leak noise, co ndensation in mask/hose, nasal congestion, epistaxis Observed to snore while using device: No Current pressure setting perceived as: comfortable On therapy, patient: reports: sleeping better, awakening more refreshed, being more awake and alert during the day, more rested overall. denies: drowsiness while driving Initial [place] Sleepiness Scale score: 15 (in 2010) Current [place] Sleepiness Scale score: 8 (10/09/23) Allergies and Home Medications Known drug allergies: Yes (as listed) Drug allergies reviewed: Yes Home medication list reviewed: Yes (no changes) Allergy and home medication list: Allergies Sulfa (Sulfonamide Antibiotics) Allergy (Verified 10/09/23 12:51) Edema puffy eyes and face bloating metformin Adverse Reaction (Verified 10/09/23 12:51) Review of Systems Review of systems same as previous: Yes (NO CHANGE) Physical Exam Vital signs obtained and entered by: NATALIIA Fontaine MA Blood Pressure: 112/74 (LEFT ARM) Cuff size: long Heart Rate: 72 O2 Saturation: 97 Height: 5 ft 5 in Weight: 215 lb 9.6 oz Weight change since last visit: 14 lbs loss Body Mass Index: 35.9 BMI Classification: Obese Impression and Plan 1. Obstructive Sleep Apnea-Hypopnea Syndrome, mild, with good treatment compliance and good apnea control. On CPAP therapy, the patient has better sleep quality and is more rested overall. She has significant improvement of her sleep apnea and is satisfied with current therapy. She gets some dry mouth sometimes, thinks she is oral venting. Oral dryness can be reduced by adjusting humidity setting higher or heated hose lower or by adjusting both settings. Verbal instructions given on how to change humidity and heated hose settings with rationale explaining why to change. She voiced understanding. Patient's apnea severity and rationale for treatment to reduce apnea, improve sleep quality and reduce cardiovascular and cerebrovascular events was reviewed. I also reviewed the benefit of consistent device use of CPAP for hypertension. 2. Obesity, unspecified. Currently patients BMI is 35.9. She has lost weight. Obesity increases the risk of apnea, CPAP pressure requirements and overall health risks especially cardiovascular and diabetes. Thus patient is advised to continue to try to lose weight. * Continue CPAP pressure at 15 cmH2O * Update supply prescription. * Notify me if snoring with mask or feeling that the pressure is too much or too little * Attempt to lose weight * Call this office if any problems using CPAP * Return for follow up in 12 months, or sooner if concerns arise Counseling Topics: Spare mask, Weight loss health impact Prescriptions: Device supplies Follow up with Sleep Care in: 1 year Visit Type: In Office Time Spent with Patient (minutes): 21 Provider Statement: I spent 100% of the Face to Face Visit with the patient with greater than 50% spent counseling the patient and coordination of care.
[2023-10-09 13:51] VITALS: BP 112/74; O2SAT 97
== END 2023-10-09 12:48 | disposition home or self-care (01) ==
LOC: SC 12:47
PROVIDERS: ATTEND Nurse Practitioner Family
DX: G47.33 Obstructive sleep apnea (adult) (pediatric) (principal); E66.9 Obesity, unspecified; Z68.35 Body mass index [BMI] 35.0-35.9, adult
CPT/HCPCS: 99212; 99213